=== PATIENT | female | born 1935 | race Caucasian/White ===

== ENCOUNTER 2016-04-04 10:20 | Outpatient (RCR) | payer OTHER | END 2016-04-30 | disposition home or self-care (01) | LOC: PTY 10:20 | DX: R53.81 Other malaise (principal) ==

== ENCOUNTER 2016-05-07 11:24 | Outpatient (RCR) | payer OTHER | END 2016-05-28 | disposition home or self-care (01) | LOC: PTY 11:24 | DX: R53.81 Other malaise (principal) ==

== ENCOUNTER 2016-05-30 11:15 | Outpatient (RCR) | payer OTHER | END 2016-06-28 | disposition home or self-care (01) | LOC: PTY 11:15 | DX: R53.81 Other malaise (principal) ==